=== PATIENT | female | born 1955 | race Caucasian/White ===

== ENCOUNTER → 2016-08-19 | Outpatient (CLI) | payer BC ==
--- NOTE | 2016-08-22 09:21 | CR ---
EXAMINATION: Lumbar spine HISTORY: Sacrococcygeal disorders COMPARISON: None TECHNIQUE: AP and lateral views FINDINGS: There is mild to moderate levocurvature of the thoracolumbar spine. Moderate marginal oste ophytes are noted. Mild disc space narrowing is noted at multiple levels. No fracture or acute osseo us abnormality. Bone mineralization appears normal to mildly osteopenic. SI joints are symmetric. IMPRESSION: Moderate degenerative changes throughout the lumbar spine without acute findings.
== END ==
LOC: MW.CHFP 08:23
PROVIDERS: ATTEND Student in an Organized Health Care Education/Training Program
DX: E11.9 Type 2 diabetes mellitus without complications (principal); I10 Essential (primary) hypertension; E78.5 Hyperlipidemia, unspecified; M53.3 Sacrococcygeal disorders, not elsewhere classified; M47.816 Spondylosis without myelopathy or radiculopathy, lumbar region
CPT/HCPCS: 36415; 72100; 72100-26; 80053; 80061; 82044; 83036

== ENCOUNTER 2022-09-21 07:15 | Emergency (ER) | payer MEDICARE ==
[2022-09-21] MEDS ORDERED: diphenhydrAMINE 50 MG/ML SDV IVPUSH ONE (07:55)
[2022-09-21] MEDS ORDERED: Sodium Chloride 0.9% 1,000 ML IV ONE (07:55)
[2022-09-21] MEDS ORDERED: Metoclopramide 10 MG/2 ML SDV IVPUSH ONE (07:55)
[2022-09-21 08:16] LABS: CARBON DIOXIDE,CO2 27.5 mmol/L (21.0-32.0); POTASSIUM,K 4.1 mmol/L (3.5-5.1)
[2022-09-21] MEDS ORDERED: Magnesium Sulfate/Water 2 GM in Premix Bag 1 BAG IV ONE (10:06)
[2022-09-21 11:42] VITALS: BP 165/88; PULSE 82
== END 2022-09-21 11:54 | disposition home or self-care (01) ==
LOC: MW.ED 07:15
DX: R07.89 Other chest pain (principal); R51.9 Headache, unspecified; I25.10 Atherosclerotic heart disease of native coronary artery without angina pectoris; E78.00 Pure hypercholesterolemia, unspecified; I10 Essential (primary) hypertension; J44.9 Chronic obstructive pulmonary disease, unspecified; K21.9 Gastro-esophageal reflux disease without esophagitis; E11.9 Type 2 diabetes mellitus without complications; Z88.8 Allergy status to other drugs, medicaments and biological substances; Z88.2 Allergy status to sulfonamides; Z91.013 Allergy to seafood; Z79.82 Long term (current) use of aspirin; Z79.4 Long term (current) use of insulin; Z79.899 Other long term (current) drug therapy
CPT/HCPCS: 36415; 71045; 80048; 84484; 85025; 85379; 93005; 96361; 96365; 96375; 99285; J1200; J2765; J3475; J7030; 93010; 99284